=== PATIENT | female | born 1985 | race Caucasian/White ===

== ENCOUNTER 2019-08-24 08:30 | Emergency (ER) | payer BC ==
[2019-08-24 08:39] VITALS: BP 99/53
--- NOTE | 2019-08-24 08:49 | UC ---
Complaint Female HPI - HPI Summary HPI Summary: 33-year-old female presents with onset of dysuria, frequency, and urgency last evening. States she has a history of frequent urinary tract infections and has a standing prescription for Bactrim DS twice daily for 5 days that she is supposed to start at the onset of symptoms. States she took 2 doses yesterday however does not have enough tablets for a full 5 day course. Reports symptoms usually resolve within 24 hours starting the antibiotic and is concerned that she is still having symptoms today. She also took Azo last evening. She is followed by Dr. Moore for the frequent UTIs and has an appointment with him next week. Denies fever, chills, abdominal pain, back or flank pain, nausea, vomiting, vaginal discharge, abnormal bleeding, or dyspareunia. - History Of Current Complaint Chief Complaint: UCGU Stated Complaint: UTI Time Seen by Provider: 08/24/19 08:37 Hx Obtained From: Patient Hx Last Menstrual Period: 08/18/19 Pain Intensity: 0 - Allergies/Home Medications Allergies/Adverse Reactions: Allergies Allergy/AdvReac Type Severity Reaction Status Date / Time No Known Allergies Allergy Verified 08/24/19 08:35 PMH/Surg Hx/FS Hx/Imm Hx Previously Healthy: Yes GI/ History: Other - Recurrent UTIs - Surgical History Surgical History: None - Family History Known Family History: Positive: Non-Contributory - Social History Occupation: Employed Full-time Alcohol Use: Rare Substance Use Type: None Smoking Status (MU): Never Smoked Tobacco Review of Systems All Other Systems Reviewed And Are Negative: Yes Constitutional: Negative: Fever, Chills Respiratory: Positive: Negative Cardiovascular: Positive: Negative Gastrointestinal: Negative: Abdominal Pain, Vomiting, Nausea Genitourinary: Positive: Dysuria, Frequency, Urgency. Negative: Hematuria, Vaginal/Penile Discharge, Abnormal Bleeding Musculoskeletal: Positive: Negative Neurological: Positive: Negative Is Patient Immunocompromised?: No Physical Exam - Summary Physical Exam Summary: GENERAL APPEARANCE: Well developed, well nourished, alert and cooperative, and appears to be in no acute distress. CARDIAC: Normal S1 and S2. No S3, S4 or murmurs. Rhythm is regular. There is no peripheral edema, cyanosis or pallor. Extremities are warm and well perfused. Capillary refill is less than 2 seconds. Peripheral pulses intact. LUNGS: Clear to auscultation without rales, rhonchi, wheezing or diminished breath sounds. ABDOMEN: Positive bowel sounds. Soft, nondistended, nontender. No guarding or rebound. No masses or hepatosplenomegally. No CVA tenderness. MUSKULOSKELETAL: ROM intact to all extremities. No joint erythema or tenderness. Normal muscular development. Normal gait. SKIN: Skin normal color, texture and turgor with no lesions or eruptions. Triage Information Reviewed: Yes Vital Signs: Initial Vital Signs Temp 98.6 F 08/24/19 08:35 Pulse 58 08/24/19 08:35 Resp 18 08/24/19 08:35 BP 99/53 08/24/19 08:35 Pulse Ox 100 08/24/19 08:35 Vital Signs Reviewed: Yes Complaint Female Dx - Course Course Of Treatment: 33-year-old female presents with onset of dysuria, frequency, and urgency last evening. States she has a history of frequent urinary tract infections and has a standing prescription for Bactrim DS twice daily for 5 days that she is supposed to start at the onset of symptoms. States she took 2 doses yesterday however does not have enough tablets for a full 5 day course. Reports symptoms usually resolve within 24 hours starting the antibiotic and is concerned that she is still having symptoms today. She also took Azo last evening. She is followed by Dr. Moore for the frequent UTIs and has an appointment with him next week. Denies fever, chills, abdominal pain, back or flank pain, nausea, vomiting, vaginal discharge, abnormal bleeding, or dyspareunia. Afebrile. Vital signs stable. Patient's exam was overall unremarkable. Because she had started the Azo could not validate the urinalysis results therefore we will provide her with a prescription for Bactrim DS twice daily to sure she has enough for a 5 day course pending urine culture results. She encouraged to keep her appointment with urology next week. Anticipatory guidance and warning signs are reviewed with the patient. Verbalizes understanding and agrees with plan of care. - Differential Dx/Diagnosis Differential Diagnosis/HQI/PQRI: Renal Colic, Urinary Tract Infection Provider Diagnosis: UTI (urinary tract infection) Discharge ED - Sign-Out/Discharge Documenting (check all that apply): Patient Departure All imaging exams completed and their final reports reviewed: No Studies - Discharge Plan Condition: Stable Disposition: HOME Prescriptions: Sulfamethox/Trimethoprim DS* [Bactrim DS 800/160 TAB*] 1 tab PO BID #10 tab Patient Education Materials: Urinary Tract Infection in Women (ED) Referrals: Taylor Justice MD [Primary Care Provider] - Additional Instructions: We were unable to perform a urine test in the clinic today because you took Azo however based on your symptoms we will start you on an antibiotic for a urinary tract infection. We we have sent the urine for culture today to see what bacteria grow out and make sure the antibiotic you were prescribed is appropriate to treat the infection. It will take up to 48-72 hours to get these results. We will contact you if there is any change in your treatment plan. Start Bactrim DS 1 tab twice daily for 5 days. You may continue to use the Azo for next 2 days to help with the discomfort. Drink plenty of fluids. To help prevent urinary tract infections: 1) Be sure to wipe from front to back. 2) Urinate immediately after any sexual intercourse. 3) Avoid taking bubble baths. Follow up with your primary care provider in 5-7 days if symptoms persist. Seek immediate medical attention in the emergency room if you develop fever greater than 100.5 F, have severe abdominal pain, persistent vomiting, or any worsening of symptoms. - Billing Disposition and Condition Condition: STABLE Disposition: Home
--- NOTE | 2019-08-25 15:30 | UC ---
- Progress Note Progress Note: please notify pt NO UTI Stop antibiotics see PCP if not better Course/Dx - Diagnoses Provider Diagnoses: UTI (urinary tract infection) Discharge ED - Sign-Out/Discharge Documenting (check all that apply): Post-Discharge Follow Up All imaging exams completed and their final reports reviewed: No Studies - Discharge Plan Condition: Stable Disposition: HOME Prescriptions: Sulfamethox/Trimethoprim DS* [Bactrim DS 800/160 TAB*] 1 tab PO BID #10 tab Patient Education Materials: Urinary Tract Infection in Women (ED) Referrals: Taylor Justice MD [Primary Care Provider] - Additional Instructions: We were unable to perform a urine test in the clinic today because you took Azo however based on your symptoms we will start you on an antibiotic for a urinary tract infection. We we have sent the urine for culture today to see what bacteria grow out and make sure the antibiotic you were prescribed is appropriate to treat the infection. It will take up to 48-72 hours to get these results. We will contact you if there is any change in your treatment plan. Start Bactrim DS 1 tab twice daily for 5 days. You may continue to use the Azo for next 2 days to help with the discomfort. Drink plenty of fluids. To help prevent urinary tract infections: 1) Be sure to wipe from front to back. 2) Urinate immediately after any sexual intercourse. 3) Avoid taking bubble baths. Follow up with your primary care provider in 5-7 days if symptoms persist. Seek immediate medical attention in the emergency room if you develop fever greater than 100.5 F, have severe abdominal pain, persistent vomiting, or any worsening of symptoms. - Billing Disposition and Condition Condition: STABLE Disposition: Home
== END 2019-08-24 08:59 | disposition home or self-care (01) ==
LOC: UCEAST 08:30
DX: N39.0 Urinary tract infection, site not specified (principal)
CPT/HCPCS: 81003; 87086; 99202; G0463

== ENCOUNTER 2020-01-22 20:41 | Emergency (ER) | payer BC, OTHER ==
[2020-01-22 20:58] VITALS: BP 140/80
--- NOTE | 2020-01-22 21:11 | UC ---
Abdominal Pain Female HPI - HPI Summary HPI Summary: 34-year-old woman comes in with a chief complaint of right-sided abdominal pain and vomiting. Patient had sudden onset of right-sided abdominal pain about 2 hours ago. The pain being so severe she's vomited. Denies any dysuria. Is not sure when her last menstrual period was. She tried to have a bowel movement and she was unable to. No prior abdominal surgeries. Patient reports pain gets worse with movement of her right leg. - History of Current Complaint Chief Complaint: UCAbdominalPain Stated Complaint: RT SIDE PAIN, VOMITING Time Seen by Provider: 01/22/20 21:04 Hx Last Menstrual Period: 08/18/19 Pain Intensity: 10 Allergies/Adverse Reactions: Allergies Allergy/AdvReac Type Severity Reaction Status Date / Time No Known Allergies Allergy Verified 01/22/20 20:58 Home Medications: Home Medications NK [No Home Medications Reported] 01/22/20 [History Confirmed 01/22/20] PMH/Surg Hx/FS Hx/Imm Hx Previously Healthy: Yes - Surgical History Surgical History: None - Family History Known Family History: Positive: Non-Contributory - Social History Alcohol Use: Rare Substance Use Type: None Smoking Status (MU): Never Smoked Tobacco Review of Systems All Other Systems Reviewed And Are Negative: Yes Constitutional: Positive: Other - SEE HPI Skin: Positive: Negative Eyes: Positive: Negative ENT: Positive: Negative Respiratory: Positive: Negative Cardiovascular: Positive: Negative Gastrointestinal: Positive: Abdominal Pain, Vomiting, Other - SEE HPI Motor: Positive: Negative Neurovascular: Positive: Negative Musculoskeletal: Positive: Negative Neurological/Mental Status: Positive: Negative Psychological: Positive: Negative Is Patient Immunocompromised?: No Physical Exam Triage Information Reviewed: Yes Appearance: Well-Nourished, Ill-Appearing - MILD, Pain Distress - MILD/MODERATE Vital Signs: Initial Vital Signs Temp 99.0 F 01/22/20 20:52 Pulse 73 01/22/20 20:52 Resp 22 01/22/20 20:52 BP 140/80 01/22/20 20:52 Pulse Ox 100 01/22/20 20:52 Vital Signs Reviewed: Yes Eye Exam: Normal Eyes: Positive: Conjunctiva Clear Neck: Positive: Supple Respiratory: Positive: Lungs clear, Normal breath sounds, No respiratory distress Cardiovascular: Positive: RRR Abdomen Description: Positive: Other: - Tender to palpation right side of the abdomen. Bowel Sounds: Positive: Hypoactive Musculoskeletal: Positive: Strength Intact Neurological: Positive: Alert Psychological: Positive: Age Appropriate Behavior Skin Exam: Normal Abd Pain Female Course/Dx - Course Course Of Treatment: I recommended further evaluation in the emergency department. I discussed going by and months patient prefers to go by POV. - Differential Dx/Diagnosis Provider Diagnosis: Right sided abdominal pain Discharge ED - Sign-Out/Discharge Documenting (check all that apply): Patient Departure All imaging exams completed and their final reports reviewed: No Studies - Discharge Plan Condition: Stable Disposition: HOME-RECOMMEND TO ED Patient Education Materials: Acute Abdominal Pain (ED) Referrals: Taylor Justice MD [Primary Care Provider] - Additional Instructions: GO DIRECTLY TO THE EMERGENCY DEPARTMENT FOR FURTHER EVALUATION OF YOUR RIGHT SIDED ABDOMINAL PAIN. - Billing Disposition and Condition Condition: STABLE Disposition: Home-Recommend to ED
== END 2020-01-22 21:15 | disposition home health service (06) ==
LOC: UCEAST 20:41
DX: R10.9 Unspecified abdominal pain (principal); R11.10 Vomiting, unspecified
CPT/HCPCS: 99212; G0463

== ENCOUNTER 2020-01-22 21:24 | Emergency (ER) | payer SELFPAY ==
[2020-01-22] MEDS ORDERED: Ondansetron INJ* 2 MG/ML VIAL IV ONE (23:30)
[2020-01-22] MEDS ORDERED: NS 0.9% 1000 ML** 1,000 ML IV ONE (23:30)
[2020-01-22] MEDS ORDERED: Ketorolac INJ* 30 MG/ML 1 ML VIAL IV PUSH ONE (23:30)
--- NOTE | 2020-01-22 23:35 | ED ---
Abdominal Pain/Female - HPI Summary HPI Summary: This pt is a 34 Y/O F presenting to [facility] with a CC of R sided abdominal pain that occurred at 1900 following dinner with associated vomiting. She states that she had chicken, lentils, and sweet potatoes. She states that she sat down to watch tv and had abrupt cramps that were rated an 8/10 in severity. She denies any fevers, chills, headaches, diarrhea, CP, and SOB. She states that she has no aggravating or alleviating factors. She has a PMHx or chronic UTIs. - History of Current Complaint Chief Complaint: EDAbdPain Stated Complaint: ABD PAIN PER PT Time Seen by Provider: 01/22/20 23:24 Hx Obtained From: Patient Hx Last Menstrual Period: 08/18/19 ?: No Onset/Duration: Sudden Onset, Lasting Hours - 4, Lasting Weeks Timing: Constant Severity Initially: Severe Severity Currently: Severe Pain Intensity: 8 Pain Scale Used: 0-10 Numeric Location: Discrete At: RUQ, Discrete At: RLQ Radiates: No Character: Cramping Aggravating Factor(s): Movement - R leg Alleviating Factor(s): Nothing Associated Signs and Symptoms: Positive: Negative - chills, headaches, and SOB. , Nausea, Vomiting. Negative: Fever, Chest Pain, Diarrhea Allergies/Adverse Reactions: Allergies Allergy/AdvReac Type Severity Reaction Status Date / Time No Known Allergies Allergy Verified 01/22/20 21:29 Home Medications: Home Medications Ondansetron ODT TAB* [Zofran 4 MG Odt TAB*] 8 mg PO Q6H PRN #12 tab.odt [Rx] oxyCODONE/Acetamin 5/325 MG* [Percocet 5/325 TAB*] 2 tab PO Q4H PRN #15 tab MDD 6 01/23/20 [Rx] PMH/Surg Hx/FS Hx/Imm Hx Previously Healthy: Yes Endocrine/Hematology History: Denies: Hx Diabetes, Hx Thyroid Disease Cardiovascular History: Denies: Hx Hypertension Respiratory History: Denies: Hx Asthma, Hx Chronic Obstructive Pulmonary Disease (COPD) GI History: Denies: Hx Ulcer History: Reports: Other Problems/Disorders - states chronic UTI - Cancer History Hx Chemotherapy: No Hx Radiation Therapy: No - Surgical History Surgical History: None - Immunization History Immunizations Up to Date: Yes Infectious Disease History: No Infectious Disease History: Denies: Hx Hepatitis, Hx Human Immunodeficiency Virus (HIV), Traveled Outside the [place] in Last 30 Days - Family History Known Family History: Negative: Hypertension - Social History Occupation: Employed Full-time Lives: With Family Alcohol Use: Rare Hx Substance Use: No Substance Use Type: Reports: None Hx Tobacco Use: No Smoking Status (MU): Never Smoked Tobacco Review of Systems Negative: Fever, Chills Negative: Chest Pain Negative: Shortness Of Breath Positive: Abdominal Pain, Vomiting, Nausea. Negative: Diarrhea Negative: Headache All Other Systems Reviewed And Are Negative: Yes Physical Exam - Summary Physical Exam Summary: VITAL SIGNS: Reviewed. GENERAL: Patient is a well-developed and nourished female who is lying on the stretcher in a position, appearing somewhat colicky. Patient is not in any acute respiratory distress. HEAD AND FACE: Normocephalic and atraumatic. EYES: PERRLA, EOMI x 2, No injected conjunctiva. EARS: Hearing grossly intact. Ear canals and tympanic membranes are WNL. MOUTH: Oropharynx within normal limits. NECK: Supple, trachea is midline, no adenopathy, no JVD. CHEST: Symmetric, no tenderness at palpation LUNGS: Clear to auscultation bilaterally. No wheezing or crackles. CVS: RRR, S1 and S2 present, no murmurs or gallops appreciated. ABDOMEN: Soft, non-tender. No signs of distention. Positive bowel sounds. No rebound no guarding, and no masses palpated. No JVD. No abdominal bruit or pulsations. EXTREMITIES: FROM in all major joints, no edema, no cyanosis or clubbing. NEURO: Alert and oriented x 3. No acute neurological deficits. Speech is normal. SKIN: Dry and warm Triage Information Reviewed: Yes Vital Signs On Initial Exam: Initial Vitals Temp Pulse Resp BP Pulse Ox 99.7 F 74 16 114/71 100 01/22/20 21:25 01/22/20 21:25 01/22/20 21:25 01/22/20 21:25 01/22/20 21:25 Vital Signs Reviewed: Yes Procedures - Sedation Patient Received Moderate/Deep Sedation with Procedure: No Diagnostics - Vital Signs Vital Signs Temp Pulse Resp BP Pulse Ox 01/22/20 21:25 99.7 F 74 16 114/71 100 - Laboratory Result Diagrams: 01/22/20 23:36 01/22/20 23:36 Lab Statement: Any lab studies that have been ordered have been reviewed, and results considered in the medical decision making process. - CT CT A/P CT Interpretation Completed By: Radiologist Summary of CT Findings: Mildly obstructing 2 mm calculus distal third right ureter. ED physician has reviewed this report. Abdominal Pain Fem Course/Dx - Course Course Of Treatment: This pt is a 34 Y/O F presenting to [facility] with a CC of R sided abdominal pain that occurred at 1900 following dinner with associated vomiting. She states that she had chicken, lentils, and sweet potatoes. She states that she sat down to watch tv and had abrupt cramps that were rated an 8/ 10 in severity. Her PE found no Monica's sign or other abnormal results. CT A /P: Mildly obstructing 2 mm calculus distal third right ureter. She received torodol, percocet, and zofran during her ED course. She will be discharged home with a Dx of kidney stones. She will be given pain medications PRN. - Diagnoses Provider Diagnoses: Kidney stones Discharge ED - Sign-Out/Discharge Documenting (check all that apply): Patient Departure - discharge - Discharge Plan Condition: Improved Disposition: HOME Prescriptions: Ondansetron ODT TAB* [Zofran 4 MG Odt TAB*] 8 mg PO Q6H PRN #12 tab.odt PRN Reason: Nausea oxyCODONE/Acetamin 5/325 MG* [Percocet 5/325 TAB*] 2 tab PO Q4H PRN #15 tab MDD 6 PRN Reason: Pain - Severe Patient Education Materials: Kidney Stones (ED), How to Strain Your Urine (ED) Referrals: Alpesh Moore MD [Medical Doctor] - If Needed Additional Instructions: Take 2 alleve (naproxen) OTC twice daily as a baseline for pain. If that is not adequate you can take the percocet. - Billing Disposition and Condition Condition: IMPROVED Disposition: Home - Attestation Statements Document Initiated by Scribe: Yes Documenting Scribe: Anders Clifton Provider For Whom Scribe is Documenting (Include Credential): Stevie Connelly MD Scribe Attestation: IAnders, scribed for Stevie Connelly MD on 01/23/20 at 0529. Scribe Documentation Reviewed: Yes Provider Attestation: The documentation as recorded by the scribeAnders accurately reflects the service I personally performed and the decisions made by me, Stevie Connelly MD Status of Scribe Document: Viewed
[2020-01-22 23:45] LABS: ABS Lymphocytes 1.2 10^3/ul (1.0-4.8); ABS Monocytes 0.6 10^3/ul (0-0.8); ABS Neutrophils 11.4 10^3/ul (1.5-7.7); Eosinophil % 0.1 %; Hematocrit 37 % (35-47); Hemoglobin 12.4 g/dL (12.0-16.0); Lymphocyte % 8.9 %; Mean Corpuscular HGB Conc 34 g/dL (31-36); Mean Corpuscular Hemoglobin 30 pg (27-31); Mean Corpuscular Volume 88 fL (80-97); Mean Platelet Volume 8.7 fL (7.4-10.4); Platelet Count 189 10^3/uL (150-450); Red Blood Count 4.18 10^6 /uL (3.70-4.87); Red Cell Distribution Width 13 % (10-15); White Blood Count 13.2 10^3/uL (3.5-10.8)
[2020-01-23 00:02] LABS: ALT 17 U/L (7-52); AST 21 U/L (13-39); Albumin 4.6 g/dL (3.2-5.2); Alkaline Phosphatase 47 U/L (34-104); Anion Gap 10 mmol/L (2-11); Blood Urea Nitrogen 19 mg/dL (6-24); C Reactive Protein < 1.00 mg/L (<8.01); CO2 Carbon Dioxide 23 mmol/L (22-32); Calcium 9.5 mg/dL (8.6-10.3); Chloride 104 mmol/L (101-111); EGFR Non-African American 55.4 (>60); Globulin 2.3 g/dL (2-4); Glucose 129 mg/dL (70-100); Potassium 3.8 mmol/L (3.5-5.0); Sodium 137 mmol/L (135-145); Total Protein 6.9 g/dL (6.4-8.9)
[2020-01-23 00:08] LABS: HCG Pregnancy < 0.60 mIU/mL
[2020-01-23 01:41] VITALS: BP 116/60
[2020-01-23] MEDS ORDERED: oxyCODONE/Acetamin 5/325 MG* TAB PO ONE (02:04)
[2020-01-23] MEDS ORDERED: Ondansetron ODT TAB* 4 MG SL ONE (02:04)
== END 2020-01-23 02:39 | disposition home or self-care (01) ==
LOC: ED 21:24
DX: N20.0 Calculus of kidney (principal); R10.84 Generalized abdominal pain; Z87.440 Personal history of urinary (tract) infections; R11.2 Nausea with vomiting, unspecified
CPT/HCPCS: 36415; 74176; 80053; 83605; 83690; 84702; 85025; 86140; 96374; 96375; 99283; A9270-GY; J1885; J2405

== ENCOUNTER 2023-04-18 01:23 | Inpatient (IN) ==
[2023-04-18] MEDS ORDERED: Lactated Ringers 1000 ml BAG 1,000 ML IV ONE (02:18)
[2023-04-18] MEDS ORDERED: Buffered Lidocaine 1% SYRIN 1 ml INTRADERM ONE (02:18)
[2023-04-18 02:27] LABS: Urine Benzodiazepine Screen None Detected (None Detect); Urine Cannabinoids Screen None Detected (None Detect); Urine Opiates Screen None Detected (None Detect)
[2023-04-18 02:32] LABS: ABS Basophils 0.1 10^3/uL (0.0-0.1); ABS Eosinophils 0.1 10^3/uL (0.0-0.5); ABS Lymphocytes 2.4 10^3/uL (1.0-4.8); ABS Monocytes 1.2 10^3/uL (0.0-0.9); ABS Neutrophils 10.2 10^3/uL (1.5-7.6); ABS Nucleated RBC 0.01 10^3/ul; Eosinophil % 0.4 %; Hematocrit 34.4 % (35-45); Lymphocyte % 17.1 %; Mean Corpuscular Hemoglobin 30.9 pg (27-33); Mean Corpuscular Hgb Conc 34.9 g/dL (31-36); Mean Corpuscular Volume 88.4 fL (80-97); Mean Platelet Volume 10.4 fL (7.5-11.2); Platelet Count 245 10^3/uL (150-450); Red Blood Count 3.89 10^6/uL (3.63-4.92); Red Cell Distribution Width 12.6 % (12-17); White Blood Count 13.8 10^3/uL (3.8-11.8)
[2023-04-18] MEDS ORDERED: Lactated Ringers 1000 ml BAG 1,000 ML IV SCH (03:00)
[2023-04-18] MEDS ORDERED: Glycerin ADULT 2.4 gm SUPP PR PRN (05:48)
[2023-04-18] MEDS ORDERED: Dibucaine 1% OINT 28.35 GM TUBE PR PRN (05:48)
[2023-04-18] MEDS ORDERED: Witch Hazel PAD JAR TOPICAL PRN (05:48)
[2023-04-19 06:37] LABS: ABS Eosinophils 0.1 10^3/uL (0.0-0.5); ABS Monocytes 0.9 10^3/uL (0.0-0.9); ABS Neutrophils 8.3 10^3/uL (1.5-7.6); Eosinophil % 0.5 %; Hematocrit 30.2 % (35-45); Hemoglobin 10.6 g/dL (11.5-14.3); Lymphocyte % 18.1 %; Mean Corpuscular Hemoglobin 31.9 pg (27-33); Mean Corpuscular Hgb Conc 35.1 g/dL (31-36); Mean Platelet Volume 9.8 fL (7.5-11.2); Platelet Count 171 10^3/uL (150-450); Red Blood Count 3.32 10^6/uL (3.63-4.92); Red Cell Distribution Width 13.1 % (12-17); White Blood Count 11.3 10^3/uL (3.8-11.8)
[2023-04-19 07:36] VITALS: BP 110/70
== END 2023-04-19 17:55 | disposition home or self-care (01) | DRG 560 ==
LOC: MCHOBOUT 01:23 → MCHOB 01:52
PROVIDERS: ADMIT Midwife; ATTEND Midwife